=== PATIENT | male | born 1985 | race Hispanic/Latino ===

== ENCOUNTER 2022-06-12 18:56 | Emergency (ER) | payer SELFPAY ==
[~2022-06-12] VITALS: Ht 175.3 cm; Wt 61.2 kg
[2022-06-12] MEDS ORDERED: IBUPROFEN 600 MG TAB PO STA (19:05)
[2022-06-12] MEDS ORDERED: DOXYCYCLINE HYCLATE TABLET 100 MG TAB PO ONE (19:15)
[2022-06-12] MEDS ORDERED: DIPHTH/TETANUS/ACEL. PERTUSSIS 0.5 ML SYR IM ONE (19:15)
[2022-06-12] MEDS ORDERED: TETANUS/DIPHTHERIA TOX ADULT 0.5 ML SYR ONE (19:25)
== END 2022-06-12 20:07 | disposition home or self-care (01) ==
LOC: ER 19:09
DX: M25.561 Pain in right knee (principal); S81.031A Puncture wound without foreign body, right knee, initial encounter; W45.0XXA Nail entering through skin, initial encounter; M25.461 Effusion, right knee; Y99.0 Civilian activity done for income or pay
CPT/HCPCS: 90471; 90714; 99283